=== PATIENT | male | born 1960 | race Caucasian/White ===

== ENCOUNTER 2017-02-04 14:28 | Emergency (ER) | payer OTHER ==
[~2017-02-04] VITALS: Ht 175.3 cm; Wt 77.7 kg
[~2017-02-04 14:28] MED LIST: LEVA750T PO; METH5 PO
[2017-02-04 14:39] VITALS: BP 138/79; PULSE 104; RESP 18; TEMP 98.6; O2SAT 98
[2017-02-04] MEDS ORDERED: SODIUM CHLOR 0.9% 1000 ML INJ 1,000 ML IV SCH (14:42)
[2017-02-04] MEDS ORDERED: NAPR500 PO (14:45)
[2017-02-04] MEDS ORDERED: SODIUM CHLORIDE 0.9% FLUSH 5 ML FLUSH IV FLUSH PRN (14:45)
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
[2017-02-04 14:59] VITALS: O2SAT 98
--- NOTE | 2017-02-04 15:29 | RADRPT ---
EXAM DATE/TIME: 02/04/2017 14:53 [facility] COMPARISON: CHEST SINGLE AP, December 23, 2015, 16:49. INDICATIONS : Chest pain, shortness of breath, and weakness. MEDICAL HISTORY : None. SURGICAL HISTORY : None. ENCOUNTER: Initial ACUITY: 1 day PAIN SCORE: 5/10 LOCATION: Bilateral chest FINDINGS: A single view of the chest demonstrates the lungs to be symmetrically aerated without evidence of mas s, infiltrate or effusion. The cardiomediastinal contours are unremarkable. Osseous structures are intact. CONCLUSION: 1. No acute cardiopulmonary disease. Rajinder Bates MD on February 04, 2017 at 15:26 Board Certified Radiologist. This report was verified electronically.
[2017-02-04 15:46] LABS: AUTOMATED NEUTROPHIL # 11.8 TH/MM3 (1.8-7.7); BASOPHIL % 0.3 % (0.0-2.0); EOSINOPHIL % 0.1 % (0.0-4.0); HEMATOCRIT 38.2 % (39.0-51.0); HEMO FLAGS DIFF FINAL; LYMPH % 7.5 % (9.0-44.0); LYMPHOCYTE # 1.1 TH/MM3 (1.0-4.8); MEAN CELL VOLUME 86.5 FL (80.0-100.0); MEAN CORPUSCULAR HEMOGLOBIN 29.6 PG (27.0-34.0); MEAN CORPUSCULAR HGB CONC 34.2 % (32.0-36.0); MONO % 8.8 % (0.0-8.0); NEUT % 83.3 % (16.0-70.0); PLATELET COUNT 257 TH/MM3 (150-450); RED BLOOD COUNT 4.42 MIL/MM3 (4.50-5.90); RED CELL DISTRIBUTION WIDTH 13.6 % (11.6-17.2); WHITE BLOOD COUNT 14.2 TH/MM3 (4.0-11.0)
[2017-02-04 15:55] LABS: ALT (GPT) 36 U/L (12-78); ANION GAP 17 MEQ/L (5-15); AST (GOT) 34 U/L (15-37); BICARBONATE 21.5 MEQ/L (21.0-32.0); BLOOD UREA NITROGEN 13 MG/DL (7-18); CHLORIDE 104 MEQ/L (98-107); GLOMERULAR FILTRATION RATE 230 ML/MIN (>89); SODIUM (NA) 142 MEQ/L (136-145)
[2017-02-04 16:05] LABS: ALKALINE PHOSPHATASE 151 U/L (45-117); CREATINE KINASE 409 U/L (39-308)
[2017-02-04 16:17] LABS: CKMB 4.5 NG/ML (0.5-3.6)
[2017-02-04] MEDS ORDERED: SODIUM CHLOR 0.9% 1000 ML INJ 1,000 ML IV ONE (16:45)
[2017-02-04] MEDS ORDERED: POTASSIUM CHLORIDE 20 MEQ CONTROLLED RELEASE TAB PO ONE (16:45)
[2017-02-04 16:48] LABS: BLOOD, URINE NEG (NEG); GLUCOSE,URINE NEG (NEG); HYALINE CAST, URINE 3 /lpf (RARE); KETONE, URINE 150 mg/dL (NEG); MUCUS URINE FEW /lpf (OCC); NITRITE,URINE NEG (NEG); PH, URINE 5.5 (5.0-8.5); SQUAMOUS EPITHELIAL CELL URINE <1 /hpf (0-5); URINE COLOR YELLOW (YELLW/STRAW)
[2017-02-04 16:56] LABS: AMPHETAMINE, URINE NEG (NEG); BARBITURATES, URINE NEG (NEG); COCAINE, URINE NEG (NEG)
[2017-02-04 16:57] LABS: COMMENT (UR) CATH-CULT NOT IND; CULTURE IF INDICATED CATH CULTURE NOT IND
[2017-02-04 17:15] VITALS: BP 140/74; PULSE 104; RESP 18; O2SAT 97
--- NOTE | 2017-02-05 14:14 | EKG ---
Date Performed: 02/04/2017 Time Performed: 14:54:42 PTAGE: 56 years EKG: SINUS TACHYCARDIA POSSIBLE RIGHT VENTRICULAR CONDUCTION DELAY Since previous tracing, no si gnificant change noted ABNORMAL RHYTHM ECG PREVIOUS TRACING : 12/23/2015 17.12 DOCTOR: Emiliano Judd Interpretating Date/Time 02/05/2017 14:13:42
== END 2017-02-04 17:33 | disposition home or self-care (01) ==
LOC: NEPD 14:28
DX: E86.0 Dehydration (principal); E87.6 Hypokalemia; E05.90 Thyrotoxicosis, unspecified without thyrotoxic crisis or storm; R41.82 Altered mental status, unspecified; R00.0 Tachycardia, unspecified; R53.1 Weakness; R07.9 Chest pain, unspecified; R06.02 Shortness of breath; Z72.0 Tobacco use; D72.829 Elevated white blood cell count, unspecified; I45.10 Unspecified right bundle-branch block
CPT/HCPCS: 71010; 80053; 80307; 81001; 82550; 82552; 84443; 84484; 85025; 93005; 96360; 96361; 99285; J7030

== ENCOUNTER 2017-02-09 14:10 | Emergency (ER) | payer OTHER ==
[2017-02-09] VITALS (7 sets, daily range): BP systolic 126–161; BP diastolic 63–94; PULSE 84–123; RESP 16–24; TEMP 99.1; O2SAT 96–100
[~2017-02-09] VITALS: Ht 175.3 cm; Wt 77.0 kg
[~2017-02-09 14:10] MED LIST changes: -LEVA750T PO; -METH5 PO; +NAPR500 PO
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
[2017-02-09] MEDS ORDERED: LORazepam 2 MG/ML VIAL IV PUSH ONE (14:45)
[2017-02-09] MEDS ORDERED: HALOPERIDOL LACTATE 5 MG/ML AMP IV PUSH ONE (14:45)
[2017-02-09 14:56] LABS: BASOPHIL % 0.2 % (0.0-2.0); EOSINOPHIL # 0.1 TH/MM3 (0-0.4); EOSINOPHIL % 0.7 % (0.0-4.0); HEMATOCRIT 38.3 % (39.0-51.0); HEMO FLAGS DIFF FINAL; LYMPH % 13.3 % (9.0-44.0); LYMPHOCYTE # 2.1 TH/MM3 (1.0-4.8); MEAN CELL VOLUME 85.4 FL (80.0-100.0); MEAN CORPUSCULAR HEMOGLOBIN 29.1 PG (27.0-34.0); MEAN CORPUSCULAR HGB CONC 34.1 % (32.0-36.0); MONO % 9.7 % (0.0-8.0); NEUT % 76.1 % (16.0-70.0); PLATELET COUNT 300 TH/MM3 (150-450); RED BLOOD COUNT 4.49 MIL/MM3 (4.50-5.90); RED CELL DISTRIBUTION WIDTH 13.6 % (11.6-17.2); WHITE BLOOD COUNT 15.7 TH/MM3 (4.0-11.0)
[2017-02-09 14:59] LABS: ALT (GPT) 33 U/L (12-78); ANION GAP 15 MEQ/L (5-15); AST (GOT) 24 U/L (15-37); BICARBONATE 25.7 MEQ/L (21.0-32.0); BLOOD UREA NITROGEN 20 MG/DL (7-18); CHLORIDE 97 MEQ/L (98-107); GLOMERULAR FILTRATION RATE 261 ML/MIN (>89); POTASSIUM 3.1 MEQ/L (3.5-5.1); SODIUM (NA) 138 MEQ/L (136-145)
[2017-02-09 15:02] LABS: ALKALINE PHOSPHATASE 159 U/L (45-117); TOTAL BILIRUBIN ADULT 0.8 MG/DL (0.2-1.0)
--- NOTE | 2017-02-09 15:12 | RADRPT ---
EXAM DATE/TIME: 02/09/2017 14:33 [facility] COMPARISON: CHEST SINGLE AP, February 09, 2017, 14:29. INDICATIONS : Right knee pain post fall. MEDICAL HISTORY : Hyperparathyroidism. SURGICAL HISTORY : Tonsillectomy. mandibular surgery ENCOUNTER: Initial ACUITY: 1 day PAIN SCORE: 7/10 LOCATION: Right knee FINDINGS: Two view examination of the right knee demonstrates no evidence of fracture or dislocation. Bony min eralization is normal. The suprapatellar soft tissues have a normal configuration. CONCLUSION: 1. No acute bony abnormality. Sami Riley MD on February 09, 2017 at 15:01 Board Certified Radiologist. This report was verified electronically.
--- NOTE | 2017-02-09 15:21 | RADRPT ---
EXAM DATE/TIME: 02/09/2017 14:29 [facility] COMPARISON: No previous studies available for comparison. INDICATIONS : Chest pain. MEDICAL HISTORY : Hyperthyroidism. SURGICAL HISTORY : Tonsillectomy. mandibular surgery ENCOUNTER: Initial ACUITY: 1 day PAIN SCORE: 7/10 LOCATION: Bilateral upper chest FINDINGS: A single view of the chest demonstrates the lungs to be symmetrically aerated without evidence of mas s, infiltrate or effusion. The cardiomediastinal contours are unremarkable. Osseous structures are intact. CONCLUSION: 1. No active disease. Mildly tortuous aorta. Javi Gibbons MD on February 09, 2017 at 15:17 Board Certified Radiologist. This report was verified electronically.
[2017-02-09] MEDS ORDERED: POTASSIUM CHLORIDE 20 MEQ CONTROLLED RELEASE TAB PO ONE (19:45)
[2017-02-09 20:09] LABS: AMPHETAMINE, URINE NEG (NEG); BARBITURATES, URINE NEG (NEG); COCAINE, URINE NEG (NEG)
[2017-02-10 01:00] VITALS: BP 137/75; PULSE 130; RESP 20
[2017-02-10 02:04] VITALS: BP 141/63; PULSE 120; RESP 18; TEMP 98.5; O2SAT 97
[2017-02-10] MEDS ORDERED: TAPA10TA2 PO (02:30)
[2017-02-10 06:04] VITALS: BP_SYST 124; BP_SYST 168; BP_DIAS 69; BP_DIAS 95; PULSE 69; PULSE 76; RESP 18; TEMP 98; TEMP 98.3; O2SAT 97; O2SAT 99
== END 2017-02-10 09:14 | disposition short-term general hospital (02) ==
LOC: NEPE 14:10 → NEPJ 02-10 09:14
DX: R07.9 Chest pain, unspecified (principal); E05.90 Thyrotoxicosis, unspecified without thyrotoxic crisis or storm; M25.561 Pain in right knee; E21.3 Hyperparathyroidism, unspecified
CPT/HCPCS: 71010; 73560; 80053; 80307; 84443; 85025; 96374; 96375; 99285; J1630; J2060

== ENCOUNTER 2017-02-24 16:22 | Emergency (ER) | payer OTHER ==
[~2017-02-24] VITALS: Ht 175.3 cm; Wt 75.0 kg
[~2017-02-24 16:22] MED LIST changes: -NAPR500 PO; +TAPA10TA2 PO
[2017-02-24 16:23] VITALS: BP 180/83; PULSE 118; RESP 17; TEMP 97.6; O2SAT 95
--- NOTE | 2017-02-24 16:54 | PD ---
HPI Chief Complaint: Pain: Acute or Chronic Time Seen by Provider: 16:54 Travel History International Travel<30 days: No Contact w/Intl Traveler<30days: No Traveled to known affect area: No History of Present Illness HPI 56-year-old male presents to emergency department for evaluation of chronic pain. Patient states that he has pain all over. Denies any acute injury. States that when he comes in here he gets "nonnarcotic shot" and it takes all of his pain away. Patient has not followed up with primary care provider. Denies any chest dermatitis. No difficulty breathing. No fever or chills. No other symptoms to report. PFSH Past Medical History Medical History: Denies Significant Hx Cancer: No Cardiovascular Problems: No Diminished Hearing: No Gastrointestinal Disorders: No Genitourinary: No Immune Disorder: No Implanted Vascular Access Dvce: No Musculoskeletal: No Neurologic: No Psychiatric: Yes Reproductive: No Respiratory: No Thyroid Disease: Yes (HYPER) Tetanus Vaccination: < 5 Years Past Surgical History Tonsillectomy: Yes Social History Alcohol Use: Yes (occu, last week) Tobacco Use: Yes (lastnight) Substance Use: Yes Allergies-Medications (Allergen,Severity, Reaction): Coded Allergies: Penicillin (Verified Allergy, Unknown, UNKNOWN, 02/24/17) patient states he is not allergic to penicillin Reported Meds & Prescriptions Reported Meds & Active Scripts Active Reported Tapazole (Methimazole) 10 Mg Tab 20 Mg PO DAILY Review of Systems Except as stated in HPI: all other systems reviewed are Neg Physical Exam Narrative GENERAL: Thin elderly male patient, ambulatory with cane assistance and in no acute distress. SKIN: Focused skin assessment warm/dry. HEAD: Atraumatic. Normocephalic. EYES: Pupils equal and round. No scleral icterus. No injection or drainage. ENT: No nasal bleeding or discharge. Mucous membranes pink and moist. NECK: Trachea midline. No JVD. CARDIOVASCULAR: Tachycardic rate and rhythm. RESPIRATORY: No accessory muscle use. Clear to auscultation. Breath sounds equal bilaterally. GASTROINTESTINAL: Abdomen soft, non-tender, nondistended. Hepatic and splenic margins not palpable. MUSCULOSKELETAL: No obvious deformities. No clubbing. No cyanosis. No edema. Brace on his right knee NEUROLOGICAL: Awake and alert. No obvious cranial nerve deficits. Motor grossly within normal limits. Normal speech. Data Data Last Documented VS Vital Signs Date Time Temp Pulse Resp B/P Pulse Ox O2 Delivery O2 Flow Rate FiO2 02/24/17 18:12 102 20 99 02/24/17 16:23 97.6 180/83 Orders Iv Access Insert/Monitor (02/24/17 16:55) Complete Blood Count With Diff (02/24/17 16:55) Basic Metabolic Panel (Bmp) (02/24/17 16:55) Sodium Chlor 0.9% 1000 Ml Inj (Ns 1000 M (02/24/17 17:00) Ketorolac Inj (Toradol Inj) (02/24/17 17:00) Labs Laboratory Tests Test 02/24/17 17:05 White Blood Count 10.6 TH/MM3 Red Blood Count 4.23 MIL/MM3 Hemoglobin 12.2 GM/DL Hematocrit 37.0 % Mean Corpuscular Volume 87.6 FL Mean Corpuscular Hemoglobin 28.8 PG Mean Corpuscular Hemoglobin 32.8 % Concent Red Cell Distribution Width 13.3 % Platelet Count 323 TH/MM3 Mean Platelet Volume 7.8 FL Neutrophils (%) (Auto) 76.3 % Lymphocytes (%) (Auto) 15.2 % Monocytes (%) (Auto) 7.8 % Eosinophils (%) (Auto) 0.4 % Basophils (%) (Auto) 0.3 % Neutrophils # (Auto) 8.1 TH/MM3 Lymphocytes # (Auto) 1.6 TH/MM3 Monocytes # (Auto) 0.8 TH/MM3 Eosinophils # (Auto) 0.0 TH/MM3 Basophils # (Auto) 0.0 TH/MM3 CBC Comment DIFF FINAL Differential Comment Sodium Level 140 MEQ/L Potassium Level 4.1 MEQ/L Chloride Level 103 MEQ/L Carbon Dioxide Level 29.1 MEQ/L Anion Gap 8 MEQ/L Blood Urea Nitrogen 14 MG/DL Creatinine 0.41 MG/DL Estimat Glomerular Filtration 217 ML/MIN Rate Random Glucose 97 MG/DL Calcium Level 9.0 MG/DL [facility] Medical Decision Making Medical Screen Exam Complete: Yes Emergency Medical Condition: Yes Medical Record Reviewed: Yes Differential Diagnosis Chronic pain versus acute pain versus osteoarthritis versus bursitis versus discogenic pain versus electrolyte abnormalities Narrative Course 56-year-old male presents to the emergency department for evaluation, requesting dictation for chronic pain. Patient is tachycardic. Discussed the patient with my attending physician. She recommends basic lab work and treatment for his pain with nonnarcotic medication. CBC and BMP are without acute concern. Patient is given IV normal saline bolus and Toradol IV. He verbalizes marked improvement in his pain. He is ready to be discharged at this time. Diagnosis Primary Impression: Chronic pain Qualified Code: G89.29 - Other chronic pain Additional Impression: Tachycardia Referrals: Primary Care Physician Patient Instructions: Chronic Pain (ED), General Instructions Additional Instructions: Maintain adequate oral hydration Follow-up with your primary care provider Return immediately with any acute worsening of symptoms Med/Other Pt SpecificInfo: No Change to Meds Disposition: 01 DISCHARGE HOME Condition: Stable SarahJessica GREGORY Feb 24, 2017 16:54
[2017-02-24] MEDS ORDERED: SODIUM CHLOR 0.9% 1000 ML INJ 1,000 ML IV ONE (17:00)
[2017-02-24] MEDS ORDERED: KETOROLAC TROMETHAMINE 30 MG/ML (IVP) VIAL IV PUSH ONE (17:00)
[2017-02-24 17:24] LABS: AUTOMATED NEUTROPHIL # 8.1 TH/MM3 (1.8-7.7); BASOPHIL % 0.3 % (0.0-2.0); EOSINOPHIL % 0.4 % (0.0-4.0); HEMO FLAGS DIFF FINAL; LYMPH % 15.2 % (9.0-44.0); LYMPHOCYTE # 1.6 TH/MM3 (1.0-4.8); MEAN CELL VOLUME 87.6 FL (80.0-100.0); MEAN CORPUSCULAR HEMOGLOBIN 28.8 PG (27.0-34.0); MEAN CORPUSCULAR HGB CONC 32.8 % (32.0-36.0); MONO % 7.8 % (0.0-8.0); NEUT % 76.3 % (16.0-70.0); PLATELET COUNT 323 TH/MM3 (150-450); RED BLOOD COUNT 4.23 MIL/MM3 (4.50-5.90); RED CELL DISTRIBUTION WIDTH 13.3 % (11.6-17.2); WHITE BLOOD COUNT 10.6 TH/MM3 (4.0-11.0)
[2017-02-24 17:40] LABS: BICARBONATE 29.1 MEQ/L (21.0-32.0); POTASSIUM 4.1 MEQ/L (3.5-5.1)
== END 2017-02-24 18:20 | disposition home or self-care (01) ==
LOC: NEPE 16:22
DX: G89.29 Other chronic pain (principal); R00.0 Tachycardia, unspecified; E07.9 Disorder of thyroid, unspecified; Z72.0 Tobacco use
CPT/HCPCS: 80048; 85025; 96374; 99284; J1885; J7030

== ENCOUNTER 2017-05-09 11:35 | Emergency (ER) | payer OTHER ==
[~2017-05-09] VITALS: Ht 175.3 cm; Wt 61.3 kg
[2017-05-09 11:36] VITALS: BP 148/73; PULSE 100; RESP 20; TEMP 97.9; O2SAT 100
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
[2017-05-09] MEDS ORDERED: SODIUM CHLOR 0.9% 1000 ML INJ 1,000 ML IV ONE (12:45)
[2017-05-09] MEDS ORDERED: KETOROLAC TROMETHAMINE 30 MG/ML (IVP) VIAL IV PUSH ONE (12:45)
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
[2017-05-09] MEDS ORDERED: TAPA10TA2 PO (13:22)
[2017-05-09] MEDS ORDERED: NAPR375T PO (13:22)
[2017-05-10] MEDS ORDERED: LIDOCAINE 2%/EPINEPHrine PF 1:200,000 20ML SDV ONE (13:12)
[2017-05-14] MEDS ORDERED: NAPR375T PO (16:30)
[2017-05-14] MEDS ORDERED: TAPA10TA2 PO (16:30)
== END 2017-05-09 13:49 | disposition home or self-care (01) ==
LOC: NEPD 11:35
DX: S23.3XXA Sprain of ligaments of thoracic spine, initial encounter (principal); R63.4 Abnormal weight loss; E05.90 Thyrotoxicosis, unspecified without thyrotoxic crisis or storm; Z72.0 Tobacco use; Z87.39 Personal history of other diseases of the musculoskeletal system and connective tissue; Z86.59 Personal history of other mental and behavioral disorders; X58.XXXA Exposure to other specified factors, initial encounter
CPT/HCPCS: 72072; 96374; 99284; J1885; J7030

== ENCOUNTER 2017-05-16 05:00 | Emergency (ER) | payer OTHER ==
[~2017-05-16] VITALS: Ht 175.3 cm; Wt 69.0 kg
[~2017-05-16 05:00] MED LIST changes: +NAPR375T PO
[2017-05-16 05:05] VITALS: PULSE 95; RESP 20; TEMP 97.5; O2SAT 99
[2017-05-16] MEDS ORDERED: SODIUM CHLOR 0.9% 1000 ML INJ 1,000 ML IV SCH (05:10)
[2017-05-16] MEDS ORDERED: KETOROLAC TROMETHAMINE 30 MG/ML (IVP) VIAL IVP ONE (05:15)
[2017-05-16] MEDS ORDERED: ONDANSETRON HCL 4 MG/2 ML VIAL IVP ONE (05:15)
--- NOTE | 2017-05-16 05:21 | PD ---
HPI Chief Complaint: Pain: Acute or Chronic Time Seen by Provider: 05:10 Travel History International Travel<30 days: No Contact w/Intl Traveler<30days: No Traveled to known affect area: No History of Present Illness HPI EPIG AREA PAIN RAD TO BACK, DENIES N/V/D WITH THIS STATES THAT HE HAS HAD SIMILAR SYMPTOMS BEFORE AND IS ATTRIBUTED TO HIS CHRONIC BACK PAIN FOR WHICH HE RECEIVES NONOPIOID MEDICATION. PT IS A [facility]. PFSH Past Medical History Cancer: No Cardiovascular Problems: No Diminished Hearing: No Gastrointestinal Disorders: No Genitourinary: No Immune Disorder: No Implanted Vascular Access Dvce: No Musculoskeletal: No Neurologic: No Psychiatric: Yes (PTSD) Reproductive: No Respiratory: No Thyroid Disease: Yes (HYPER) Past Surgical History Tonsillectomy: Yes Social History Alcohol Use: Yes (occu, last week) Tobacco Use: Yes (lastnight) Substance Use: Yes Allergies-Medications (Allergen,Severity, Reaction): Coded Allergies: penicillin G (Unverified Allergy, Unknown, UNKNOWN, 04/04/17) patient states he is not allergic to penicillin Reported Meds & Prescriptions Reported Meds & Active Scripts Active Naproxen 375 Mg Tab 375 Mg PO BID PRN Tapazole (Methimazole) 10 Mg Tab 20 Mg PO DAILY Review of Systems Except as stated in HPI: all other systems reviewed are Neg Gastrointestinal: Positive: Abdominal Pain Physical Exam Narrative GENERAL: SKIN: Warm and dry. HEAD: Atraumatic. Normocephalic. EYES: Pupils equal and round. No scleral icterus. No injection or drainage. ENT: No nasal bleeding or discharge. Mucous membranes pink and moist. NECK: Trachea midline. No JVD. CARDIOVASCULAR: Regular rate and rhythm. RESPIRATORY: No accessory muscle use. Clear to auscultation. Breath sounds equal bilaterally. GASTROINTESTINAL: Abdomen soft, MILD EPIG TTP, nondistended. MUSCULOSKELETAL: Extremities without clubbing, cyanosis, or edema. No obvious deformities. NEUROLOGICAL: Awake and alert. No obvious cranial nerve deficits. Motor grossly within normal limits. Five out of 5 muscle strength in the arms and legs. Normal speech. PSYCHIATRIC: Appropriate mood and affect; insight and judgment normal. Data Data Last Documented VS Vital Signs Date Time Temp Pulse Resp B/P (MAP) Pulse Ox O2 Delivery O2 Flow Rate FiO2 05/16/17 05:05 97.5 95 20 99 Orders Orders Complete Blood Count With Diff (05/16/17 05:10) Comprehensive Metabolic Panel (05/16/17 05:10) Lipase (05/16/17 05:10) Ct Abd/Pel W/O Iv Contrast (05/16/17 05:10) Iv Access Insert/Monitor (05/16/17 05:10) Ecg Monitoring (05/16/17 05:10) Oximetry (05/16/17 05:10) NPO (05/16/17 05:10) Ondansetron Inj (Zofran Inj) (05/16/17 05:15) Sodium Chlor 0.9% 1000 Ml Inj (Ns 1000 M (05/16/17 05:10) Electrocardiogram (05/16/17 05:10) Ketorolac Inj (Toradol Inj) (05/16/17 05:15) Troponin I (05/16/17 05:10) Labs Laboratory Tests Test 05/16/17 05:20 White Blood Count 7.5 TH/MM3 Red Blood Count 3.93 MIL/MM3 Hemoglobin 11.3 GM/DL Hematocrit 34.6 % Mean Corpuscular Volume 88.2 FL Mean Corpuscular Hemoglobin 28.8 PG Mean Corpuscular Hemoglobin Concent 32.6 % Red Cell Distribution Width 15.2 % Platelet Count 287 TH/MM3 Mean Platelet Volume 7.7 FL Neutrophils (%) (Auto) 58.4 % Lymphocytes (%) (Auto) 26.7 % Monocytes (%) (Auto) 11.1 % Eosinophils (%) (Auto) 3.4 % Basophils (%) (Auto) 0.4 % Neutrophils # (Auto) 4.4 TH/MM3 Lymphocytes # (Auto) 2.0 TH/MM3 Monocytes # (Auto) 0.8 TH/MM3 Eosinophils # (Auto) 0.3 TH/MM3 Basophils # (Auto) 0.0 TH/MM3 CBC Comment DIFF FINAL Differential Comment Blood Urea Nitrogen 19 MG/DL Creatinine 0.49 MG/DL Random Glucose 112 MG/DL Total Protein 6.1 GM/DL Albumin 3.2 GM/DL Calcium Level 8.2 MG/DL Alkaline Phosphatase 217 U/L Aspartate Amino Transf (AST/SGOT) 30 U/L Alanine Aminotransferase (ALT/SGPT) 33 U/L Total Bilirubin 0.3 MG/DL Sodium Level 143 MEQ/L Potassium Level 4.2 MEQ/L Chloride Level 109 MEQ/L Carbon Dioxide Level 28.5 MEQ/L Anion Gap 6 MEQ/L Estimat Glomerular Filtration Rate 177 ML/MIN Troponin I LESS THAN 0.02 NG/ML Lipase 84 U/L [facility] Medical Decision Making Medical Screen Exam Complete: Yes Emergency Medical Condition: Yes Medical Record Reviewed: Yes Interpretation(s) NSR 92, LAE, NO STEMI PATTERN Differential Diagnosis PANCREATITIS V GB DZ V DYSPEPSIA V ATYPICAL DC Narrative Course NO E/O PANCREATITIS, NO AAA, NO E/O KIDNEY STONE, NO ABNL GB FOSSA AND NO STEMI ON EKG....BREAKTHROUGH PAIN RESOLVED AFTER TORADOL Diagnosis Primary Impression: Chronic pain Qualified Codes: G89.4 - Chronic pain syndrome Patient Instructions: Chronic Back Pain (ED), General Instructions Disposition: 01 DISCHARGE HOME Condition: Stable Lai Albert MD May 16, 2017 05:21
[2017-05-16 05:28] LABS: AUTOMATED NEUTROPHIL # 4.4 TH/MM3 (1.8-7.7); BASOPHIL % 0.4 % (0.0-2.0); EOSINOPHIL # 0.3 TH/MM3 (0-0.4); EOSINOPHIL % 3.4 % (0.0-4.0); HEMATOCRIT 34.6 % (39.0-51.0); HEMO FLAGS DIFF FINAL; LYMPH % 26.7 % (9.0-44.0); MEAN CELL VOLUME 88.2 FL (80.0-100.0); MEAN CORPUSCULAR HEMOGLOBIN 28.8 PG (27.0-34.0); MEAN CORPUSCULAR HGB CONC 32.6 % (32.0-36.0); MONO % 11.1 % (0.0-8.0); NEUT % 58.4 % (16.0-70.0); PLATELET COUNT 287 TH/MM3 (150-450); RED BLOOD COUNT 3.93 MIL/MM3 (4.50-5.90); RED CELL DISTRIBUTION WIDTH 15.2 % (11.6-17.2); WHITE BLOOD COUNT 7.5 TH/MM3 (4.0-11.0)
[2017-05-16 05:46] LABS: ALKALINE PHOSPHATASE 217 U/L (45-117); TOTAL BILIRUBIN ADULT 0.3 MG/DL (0.2-1.0)
[2017-05-16 05:53] LABS: ALT (GPT) 33 U/L (12-78); ANION GAP 6 MEQ/L (5-15); AST (GOT) 30 U/L (15-37); BICARBONATE 28.5 MEQ/L (21.0-32.0); BLOOD UREA NITROGEN 19 MG/DL (7-18); CHLORIDE 109 MEQ/L (98-107); GLOMERULAR FILTRATION RATE 177 ML/MIN (>89); POTASSIUM 4.2 MEQ/L (3.5-5.1); SODIUM (NA) 143 MEQ/L (136-145)
--- NOTE | 2017-05-16 05:59 | RADRPT ---
EXAM DATE/TIME: 05/16/2017 05:39 [facility] COMPARISON: No previous studies available for comparison. INDICATIONS : Right flank pain. ORAL CONTRAST: No oral contrast ingested. RADIATION DOSE: 5.49 CTDIvol (mGy) MEDICAL HISTORY : None SURGICAL HISTORY : None. ENCOUNTER: Initial ACUITY: 1 day PAIN SCALE: 10/10 LOCATION: Right flank TECHNIQUE: Volumetric scanning of the abdomen and pelvis was performed. Using automated exposure control and ad justment of the mA and/or kV according to patient size, radiation dose was kept as low as reasonably achievable to obtain optimal diagnostic quality images. DICOM format image data is available electro nically for review and comparison. FINDINGS: Lung bases are clear. No acute findings in the liver, spleen, adrenals, kidneys or pancreas. No calci fied gallstones or biliary ductal dilatation. Mild constipation. Mild anasarca. CONCLUSION: 1. No renal calculi or evidence for obstructive uropathy. 2. Mild constipation. Mild anasarca. Javi Gibbons MD on May 16, 2017 at 5:56 Board Certified Radiologist. This report was verified electronically.
[2017-05-16 06:35] VITALS: BP 121/69; PULSE 89; RESP 12; O2SAT 99
--- NOTE | 2017-05-16 14:45 | EKG ---
Date Performed: 05/16/2017 Time Performed: 05:15:03 PTAGE: 56 years EKG: Sinus rhythm WITH SINUS ARRHYTHMIA POSSIBLE LEFT ATRIAL ENLARGEMENT POSSIBLE RIGHT VENTRICULAR CONDUCTION DELAY B ORDERLINE ECG PREVIOUS TRACING : 02/04/2017 14.54 Compared to prior tracing no significant change DOCTOR: Jose Angel Sanon Interpretating Date/Time 05/16/2017 14:43:09
== END 2017-05-16 06:53 | disposition home or self-care (01) ==
LOC: NEPC 05:00
DX: G89.4 Chronic pain syndrome (principal); R10.13 Epigastric pain; M54.9 Dorsalgia, unspecified; R94.31 Abnormal electrocardiogram [ECG] [EKG]; E07.9 Disorder of thyroid, unspecified; Z72.0 Tobacco use; Z87.39 Personal history of other diseases of the musculoskeletal system and connective tissue; Z86.59 Personal history of other mental and behavioral disorders
CPT/HCPCS: 74176; 80053; 83690; 84484; 85025; 93005; 96374; 96375; 99285; J1885; J2405; J7030

== ENCOUNTER 2017-05-30 12:18 | Emergency (ER) | payer OTHER ==
[~2017-05-30] VITALS: Ht 175.3 cm; Wt 66.0 kg
--- NOTE | 2017-05-30 12:30 | PD ---
Physical Exam Time Seen by Provider: 12:27 Narrative 56-year-old male presents emergency Department with complaint of headache since yesterday. Reports history of headaches all his life. Denies vomiting. Patient is aggravated and is a poor historian in triage. Patient seen in triage. Vital signs reviewed. Patient awaiting bed placement. Data Data Last Documented VS Vital Signs Date Time Temp Pulse Resp B/P (MAP) Pulse Ox O2 Delivery O2 Flow Rate FiO2 05/30/17 18:53 05/30/17 18:39 91 14 100 05/30/17 12:31 98.7 Orders Orders Diphenhydramine Inj (Benadryl Inj) (05/30/17 17:30) Prochlorperazine Inj (Compazine Inj) (05/30/17 17:30) ^ Saline Lock (05/30/17 17:18) Ed Discharge Order (05/30/17 17:51) MDM Supervised Visit with HARJIT: Darcie Leigh May 30, 2017 12:30
[2017-05-30 12:31] VITALS: BP 139/74; PULSE 105; RESP 14; TEMP 98.7; O2SAT 99
[2017-05-30] MEDS ORDERED: TYLE325T PO (17:00)
[2017-05-30] MEDS ORDERED: diphenhydrAMINE HCL 50 MG/ML VIAL IV PUSH ONE (17:30)
[2017-05-30] MEDS ORDERED: PROCHLORPERAZINE INJ 10 MG/2 ML VIAL IV PUSH ONE (17:30)
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
[2017-05-30 18:39] VITALS: BP 116/69; PULSE 91; RESP 14; O2SAT 100
== END 2017-05-30 18:54 | disposition home or self-care (01) ==
LOC: NEPD 12:18
DX: R51 Headache (principal); R11.0 Nausea; E07.9 Disorder of thyroid, unspecified; F17.200 Nicotine dependence, unspecified, uncomplicated; Z86.59 Personal history of other mental and behavioral disorders
CPT/HCPCS: 96374; 96375; 99284; J0780; J1200

== ENCOUNTER 2017-07-01 08:58 | Emergency (ER) | payer OTHER ==
[~2017-07-01] VITALS: Ht 175.3 cm; Wt 65.0 kg
[~2017-07-01 08:58] MED LIST changes: +NAPR-855 PO; -NAPR375T PO; +TYLE325T PO
[2017-07-01 09:01] VITALS: BP 131/76; PULSE 102; RESP 18; TEMP 98.3; O2SAT 98
[2017-07-01 09:15] VITALS: PULSE 97; RESP 18; TEMP 98.8; O2SAT 99
--- NOTE | 2017-07-01 09:36 | PD ---
HPI Chief Complaint: Skin Problem Time Seen by Provider: 09:23 Travel History International Travel<30 days: No Contact w/Intl Traveler<30days: No Traveled to known affect area: No History of Present Illness HPI 57yo M with PMH of hyperthyroidism presents to the ED with c/o right knee pain for 4 days. States he hit his right knee into a thorn and it started off small but now the redness has spread. Ambulates with pain. Denies any fever, n/v, abdominal pain, chest pain, sob, focal weakness or numbness. PFSH Past Medical History Cancer: Yes (prostate and brain - no treatment) Cardiovascular Problems: No Diminished Hearing: No Gastrointestinal Disorders: No Genitourinary: No Headaches: Yes Immune Disorder: No Implanted Vascular Access Dvce: No Musculoskeletal: No Neurologic: No Psychiatric: Yes (PTSD) Reproductive: No Respiratory: No Thyroid Disease: Yes (hyper) Past Surgical History Tonsillectomy: Yes Social History Alcohol Use: Yes (daily) Tobacco Use: Yes (1 ppd) Substance Use: Yes (THC weekly) Allergies-Medications (Allergen,Severity, Reaction): Coded Allergies: penicillin G (Unverified Allergy, Unknown, UNKNOWN, 05/30/17) patient states he is not allergic to penicillin Reported Meds & Prescriptions Reported Meds & Active Scripts Active No Active Prescriptions or Reported Medications Review of Systems Except as stated in HPI: all other systems reviewed are Neg Physical Exam Narrative GENERAL: 57yo M not in distress. Disheveled. SKIN: Focused skin assessment warm/dry. HEAD: Atraumatic. Normocephalic. EYES: Pupils equal and round. No scleral icterus. No injection or drainage. CARDIOVASCULAR: Regular rate and rhythm. No murmur appreciated. RESPIRATORY: No accessory muscle use. Clear to auscultation. Breath sounds equal bilaterally. GASTROINTESTINAL: Abdomen soft, non-tender, nondistended. MUSCULOSKELETAL: Right knee: +Erythema 9cm by 9cm with healed over central wound that was probably the entry of the thorn. No fluctuance. Able to fully flex and extend right knee. Distal pulses intact. Sensation intact. NEUROLOGICAL: Awake and alert. No obvious cranial nerve deficits. Motor grossly within normal limits. Normal speech. PSYCHIATRIC: Appropriate mood and affect; insight and judgment normal. Data Data Last Documented VS Vital Signs Date Time Temp Pulse Resp B/P (MAP) Pulse Ox O2 Delivery O2 Flow Rate FiO2 11/12/17 09:15 98.8 97 18 99 Orders Orders Basic Metabolic Panel (Bmp) (07/01/17 09:31) Complete Blood Count With Diff (07/01/17 09:31) Clindamycin Inj (Cleocin Inj) (07/01/17 09:45) Tetanus/Diphtheria Tox Adult (Tetanus/Di (07/01/17 09:45) Knee, Ltd (1 Or 2vws) (07/01/17 ) Lactic Acid Sepsis Protocol (07/01/17 09:31) Ketorolac Inj (Toradol Inj) (07/01/17 09:45) Clindamycin Inj (Cleocin Inj) (07/01/17 09:45) Labs Laboratory Tests Test 07/01/17 09:40 07/01/17 09:42 White Blood Count 10.6 TH/MM3 Red Blood Count 4.65 MIL/MM3 Hemoglobin 14.0 GM/DL Hematocrit 41.0 % Mean Corpuscular Volume 88.2 FL Mean Corpuscular Hemoglobin 30.0 PG Mean Corpuscular Hemoglobin Concent 34.1 % Red Cell Distribution Width 14.0 % Platelet Count 256 TH/MM3 Mean Platelet Volume 7.5 FL Neutrophils (%) (Auto) 75.8 % Lymphocytes (%) (Auto) 13.5 % Monocytes (%) (Auto) 9.5 % Eosinophils (%) (Auto) 1.0 % Basophils (%) (Auto) 0.2 % Neutrophils # (Auto) 8.0 TH/MM3 Lymphocytes # (Auto) 1.4 TH/MM3 Monocytes # (Auto) 1.0 TH/MM3 Eosinophils # (Auto) 0.1 TH/MM3 Basophils # (Auto) 0.0 TH/MM3 CBC Comment DIFF FINAL Differential Comment Blood Urea Nitrogen 8 MG/DL Creatinine 0.42 MG/DL Random Glucose 94 MG/DL Calcium Level 8.7 MG/DL Sodium Level 137 MEQ/L Potassium Level 4.3 MEQ/L Chloride Level 104 MEQ/L Carbon Dioxide Level 28.5 MEQ/L Anion Gap 5 MEQ/L Estimat Glomerular Filtration Rate 210 ML/MIN Lactic Acid Level 0.7 mmol/L MDM Medical Decision Making Medical Screen Exam Complete: Yes Emergency Medical Condition: Yes Differential Diagnosis Cellulitis vs. foreign body Narrative Course 57yo well appearing male with right knee pain after he hit his knee on a thorn. No fever, nausea or vomiting. Labs reviewed, no leukocytosis. BMP unremarkable. Lactic acid normal. Xray showed proximal tibial sclerosis involving medical tibial plateau with appearance of healed stress fracture. No evidence of destructive bone changes or joint effusion to suggest septic arthropathy. Pt has full range of motion in the right knee and low clinical suspicion of septic joint given no systemic symptoms and normal labs. Pt given tetanus, toradol and clindamycin with improvement of pain. Return precautions given. Diagnosis Primary Impression: Cellulitis Qualified Codes: L03.115 - Cellulitis of right lower limb Patient Instructions: General Instructions Departure Forms: Tests/Procedures Additional Instructions: Please follow up with your primary care physician in 3-7 days. Return to the ED if symptoms worsen. Med/Other Pt SpecificInfo: Prescription(s) given Scripts Acetaminophen (Tylenol) 325 Mg Tab 650 MG PO Q6H Y for PAIN SCALE 1 TO 4, #20 TAB 0 Refills Prov: Rebekah Howe DO 07/01/17 Clindamycin (Clindamycin) 300 Mg Cap 300 MG PO Q6H for Infection for 7 Days, #28 CAP 0 Refills Prov: Rebekah Howe DO 07/01/17 Disposition: 01 DISCHARGE HOME Condition: Stable Rebekah Howe DO Jul 01, 2017 09:36
[2017-07-01] MEDS ORDERED: TETANUS/DIPHTHERIA TOXOID ADULT 0.5 ML VIAL IM ONE (09:45)
[2017-07-01] MEDS ORDERED: CLINDAMYCIN INJ 600 MG in SODIUM CHLORIDE 0.9% INJ 50 ML IV ONE (09:45)
[2017-07-01] MEDS ORDERED: CLINDAMYCIN INJ 600 MG in SODIUM CHLORIDE 0.9% INJ 100 ML IV ONE (09:45)
[2017-07-01] MEDS ORDERED: KETOROLAC TROMETHAMINE 30 MG/ML (IVP) VIAL IV PUSH ONE (09:45)
[2017-07-01 09:52] LABS: BASOPHIL % 0.2 % (0.0-2.0); EOSINOPHIL # 0.1 TH/MM3 (0-0.4); HEMO FLAGS DIFF FINAL; LYMPH % 13.5 % (9.0-44.0); LYMPHOCYTE # 1.4 TH/MM3 (1.0-4.8); MEAN CELL VOLUME 88.2 FL (80.0-100.0); MEAN CORPUSCULAR HGB CONC 34.1 % (32.0-36.0); MONO % 9.5 % (0.0-8.0); NEUT % 75.8 % (16.0-70.0); PLATELET COUNT 256 TH/MM3 (150-450); RED BLOOD COUNT 4.65 MIL/MM3 (4.50-5.90); WHITE BLOOD COUNT 10.6 TH/MM3 (4.0-11.0)
--- NOTE | 2017-07-01 10:13 | RADRPT ---
EXAM DATE/TIME: 07/01/2017 09:40 [facility] COMPARISON: KNEE RIGHT LTD (1 OR 2 VWS), February 09, 2017, 14:33. INDICATIONS : Possible infection. Right knee pain and swelling. MEDICAL HISTORY : None. SURGICAL HISTORY : None. ENCOUNTER: Initial ACUITY: 4 - 6 days PAIN SCORE: 7/10 LOCATION: Right lateral FINDINGS: Two view examination of the right knee demonstrates no evidence of acute fracture or dislocation. Scl erosis has developed in the medial tibial plateau on the metaphysis. Bony mineralization is normal. The suprapatellar soft tissues have a normal configuration. There is no evidence of joint effusion. CONCLUSION: 1. Proximal tibial sclerosis involving the medial tibial plateau which has the appearance of a healed or healing stress fracture. 2. No evidence of destructive bone changes or joint effusion to suggest septic arthropathy. Ronald Baldwin MD on July 01, 2017 at 10:06 Board Certified Radiologist. This report was verified electronically.
[2017-07-01 10:14] LABS: BICARBONATE 28.5 MEQ/L (21.0-32.0); POTASSIUM 4.3 MEQ/L (3.5-5.1)
[2017-07-01] MEDS ORDERED: CLIN300C5 PO (11:49)
[2017-07-01] MEDS ORDERED: TYLE325T PO (11:49)
== END 2017-07-01 12:12 | disposition home or self-care (01) ==
LOC: NEPD 08:58
DX: L03.115 Cellulitis of right lower limb (principal); Z72.0 Tobacco use; Z23 Encounter for immunization; W22.8XXA Striking against or struck by other objects, initial encounter
CPT/HCPCS: 73560; 80048; 83605; 85025; 90471; 90714; 96374; 96375; 99284; J1885